=== PATIENT | male | born 1965 ===

== ENCOUNTER 2018-07-02 11:46 | Emergency (ER) | payer OTHER ==
[~2018-07-02] VITALS: Ht 170.2 cm; Wt 85.0 kg
[2018-07-02] MEDS ORDERED: MORPHINE SULFATE 4 MG/ML CPJ (NOT FOR IM USE) IV STA (12:11)
[2018-07-02] MEDS ORDERED: ONDANSETRON HCL 4MG/2ML VIAL IV STA (12:11)
[2018-07-02] MEDS ORDERED: ASPIRIN 81MG TABLET PO ONE (13:00)
[2018-07-02 13:31] LABS: EOSINOPHILS % 1.6 % (0.0-5.0); HEMATOCRIT. 45.5 % (42.0-52.0); HEMOGLOBIN. 15.4 g/dL (14.0-18.0); LYMPHOCYTES % 14.3 % (20.0-50.0); MEAN CORPUSCULAR HEMOGLOBIN 27.4 pg (28.0-32.0); MEAN CORPUSCULAR VOLUME 80.9 fL (80.0-94.0); MEAN PLATELET VOLUME 9.8 fl (7.4-10.4); MONOCYTES % 6.8 % (2.0-8.0); NEUTROPHILS % 76.3 % (40.0-76.0); PLATELET 235 x1000/uL (130-400); RED BLOOD CELL COUNT 5.63 mill/uL (4.7-6.1); RED CELL DISTRIBUTION WIDTH 14.5 % (11.6-14.6)
[2018-07-02 13:47] LABS: CLARITY URINE CLEAR (CLEAR); COLOR URINE YELLOW (YELLOW); KETONES URINE 1+ (NEGATIVE); LEUKOCYTE ESTERASE URINE NEGATIVE (NEGATIVE); NITRITE URINE NEGATIVE (NEGATIVE); OCCULT BLOOD URINE NEGATIVE (NEGATIVE); PH URINE >=9.0 (4.5-8.0); PROTEIN URINE NEGATIVE (NEGATIVE); UROBILINOGEN URINE 0.2 E.U./dL (0.2-1.0)
[2018-07-02 13:47] LABS: CHLORIDE 104 mEq/L (98-107)
[2018-07-02] MEDS ORDERED: CLONIDINE 0.1MG TABLET PO ONE (14:00)
[2018-07-02] MEDS ORDERED: FAMOTIDINE 20MG TABLET PO ONE (15:00)
[2018-07-02 17:16] VITALS: BP 194/95
== END 2018-07-02 17:42 | disposition short-term general hospital (02) ==
LOC: ER 11:46 → CANBEDREQ 14:39 → ER 17:42
DX: R07.89 Other chest pain (principal); R79.89 Other specified abnormal findings of blood chemistry
CPT/HCPCS: 36415; 71045; 80053; 81003; 83880; 84484; 85025; 93005; 96374; 96375; 99285; J2270; J2405; Z7610